=== PATIENT | male | born 1995 | race Caucasian/White ===

== ENCOUNTER 2018-05-06 04:40 | Emergency (ER) | payer MEDICAID, OTHER ==
[2018-05-06] MEDS ORDERED: KETOROLAC 15 MG/1 ML SDV IM ONE (04:51)
--- NOTE | 2018-05-06 04:56 | EDPHY ---
H & P Stated Complaint: R lower abdominal pain, vomiting Time Seen by Provider: 05/06/18 04:48 HPI/ROS: Chief Complaint: Right flank pain, groin pain HPI: 22-year-old male woke with pain in his right flank radiating to his right groin about 3:00 a.m. This morning. He has had similar episodes in the past and been diagnosed with kidney stones. He has had some nausea vomiting. Pain got worse up to an 8/10. No fevers or chills. No urine urgency or frequency. In the waiting room he gave a urine sample and did pass a stone with some dark urine. Pain is now down to a 4/10. ROS: 10 systems were reviewed and were negative except those elements noted in the HPI. PMH: Kidney stones Social History: No smoking Family History: non-contributory Physical Exam: Gen: Awake, Alert, No Distress HEENT: Nose: no rhinorrhea Eyes: PERRLA, EOMI Mouth: Moist mucosa Neck: Supple, no JVD Chest: nontender, lungs clear to auscultation Heart: S1, S2 normal, no murmur Abd: Soft, non-tender, no guarding Back: no CVA tenderness, no midline tenderness Ext: no edema, non-tender Skin: no rash Neuro: CN II-XII intact, Sensation grossly intact, Strength 5/5 in bilateral upper and lower extremities - Personal History Current Tetanus/Diphtheria Vaccine: Yes Current Tetanus Diphtheria and Acellular Pertussis (TDAP): Yes - Medical/Surgical History Hx Asthma: Yes Hx Chronic Respiratory Disease: No Hx Diabetes: No Hx Cardiac Disease: No Hx Renal Disease: No Hx Cirrhosis: No Hx Alcoholism: No Hx HIV/AIDS: No Hx Splenectomy or Spleen Trauma: No Other PMH: asthma. surg-none. kidney stone - Social History Smoking Status: Former smoker Constitutional: Initial Vital Signs Temperature (C) 36.7 C 05/06/18 04:43 Heart Rate 81 05/06/18 04:43 Respiratory Rate 16 05/06/18 04:43 Blood Pressure 129/76 H 05/06/18 04:43 O2 Sat (%) 95 05/06/18 04:43 O2 Delivery Mode Room Air Allergies/Adverse Reactions: No Known Allergies Allergy (Verified 05/06/18 04:42) Home Medications: Medication Instructions Recorded NO HOME MEDS 06/03/10 Medical Decision Making ED Course/Re-evaluation: Patient is improved. Urinalysis does not show infection but is consistent with kidney stone. Patient has passed a stone here. Will discharge with follow-up with Urology, return for any concerns. - Data Points Laboratory Results: 05/06/18 04:50 Urine Color YELLOW Urine Appearance MODERATELY TURBID Urine pH 5.0 (5.0-7.5) Ur Specific [place] 1.020 (1.002-1.030) Urine Protein 1+ H (NEGATIVE) Urine Ketones NEGATIVE (NEGATIVE) Urine Blood 3+ H (NEGATIVE) Urine Nitrate NEGATIVE (NEGATIVE) Urine Bilirubin NEGATIVE (NEGATIVE) Urine Urobilinogen NEGATIVE EU EU (0.2-1.0) Ur Leukocyte Esterase NEGATIVE (NEGATIVE) Urine RBC 50-182 /hpf H /hpf (0-3) Urine WBC 3-5 /hpf H /hpf (0-3) Ur Epithelial Cells NONE SEEN /lpf /lpf (NONE-1+) Urine Bacteria 1+ /hpf H /hpf (NONE SEEN) Urine Mucus 1+ /lpf /lpf (NONE-1+) Urine Glucose NEGATIVE (NEGATIVE) Medications Given: Discontinued Medications Ketorolac Tromethamine (Toradol) 30 mg IM EDNOW ONE Stop: 05/06/18 04:52 Last Admin: 05/06/18 04:59 Dose: 30 mg Departure - Departure Disposition: Home, Routine, Self-Care Clinical Impression: Kidney stone Condition: Good Instructions: Kidney Stones (ED) Additional Instructions: Take ibuprofen, 600 mg every 8 hr. You may alternate with acetaminophen, 1000 mg every 8 hr. Follow up with urologist in 2-3 days for further evaluation. Referrals: Sam Euceda MD [Medical Doctor] - As per Instructions
[2018-05-06 06:09] VITALS: BP 119/82
== END 2018-05-06 06:09 | disposition home or self-care (01) ==
DX: N20.0 Calculus of kidney (principal); Z87.442 Personal history of urinary calculi
CPT/HCPCS: J1885